=== PATIENT | female | born 1985 | race Asian ===

== ENCOUNTER 2021-12-06 10:08 | Outpatient (CLI) | payer BC, SELFPAY ==
--- NOTE | 2021-12-06 10:15 | CRLHL7_ITS ---
For Patients: As a result of the Century Cures Act, medical imaging exams and procedure reports are released immediately into your electronic medical record. You may view this report before your referring provider. If you have questions, please contact your health care provider. CLINICAL HISTORY: : Right breast MASTITIS, RULE OUT Abscess. COMPARISON: None TECHNIQUE: Real-time ultrasound imaging of right breast with imaging documentation. FINDINGS: Targeted ultrasound to the upper right breast corresponding to the area of concern performed. At 12-1 o`clock 13-15 millimeters from the nipple, multiple small circumscribed fluid collections are present with surrounding hyperechoic and hypervascular tissue. The largest measures 1.7 x 1.0 x 1.0 cm although there are multiple smaller abscesses also present. IMPRESSION: Multiple abscesses in the upper right breast measuring up to 1.7 cm. RECOMMENDATIONS: Antibiotic therapy and clinical follow-up. Results and recommendations were discussed with the patient at the time of the exam. BI-RADS: 2. Benign. Dictated by Raleigh Thurston MD @ 12/06/2021 11:02:09 AM (Electronically Signed)
== END 2021-12-06 10:09 | disposition home or self-care (01) ==
PROVIDERS: Visit Provider Physician Assistant
DX: N61.0 Mastitis without abscess (principal)
CPT/HCPCS: 76642

== ENCOUNTER 2021-12-23 09:01 | Outpatient (RCR) | payer BC, SELFPAY ==
--- NOTE | 2021-12-23 10:48 | PT.OPEX ---
PT [place] [facility] Eval PT [facility] Outpatient Eval Start: 12/23/21 09:03 Freq: Status: Active Protocol: Document 12/23/21 10:17 DARYN (Rec: 12/23/21 10:41 DARYN [id number]) E-signed By Tabitha Schroeder, PT Physical Therapy Outpatient Evaluation Insurance Information Insurance Name [employer] Medical Diagnosis pelvic floor weakness female genital prolapse Treating Diagnosis muscle weakness lack of coordination (muscle) Subjective Subjective Winters presents with diagnosis of PFM and genital prolapse following the delivery of her 2nd baby approximately 6 weeks ago. Pt reports initially having a prolapse following the vaginal delivery but those symptoms have improved. Does not feel like she has the ability to contract her PFM. She continues to have issues with XAVIER symptoms - leaking with coughing and sneezing. Other bladder function is good . Urinates approximately every 5 hours. She drinks 128 oz of water per day. Is currently breast feeding her daughter and is pumping breast milk for 2 other infants. Does feel with the frequent pumping she gets dehydrated. Able to defecate approximately every 2 days which was normal for her for years. Has attempted intercourse and had no pain. Her goals for therapy are to improve her PFM strength and improve bladder control. Pain Comments NA Precautions Treatment Precautions/Contraindications History of lumbar fusions approx 8 yrs ago - fusion of L5-S1 after 2 failed microdiscectomies. depression recent delivery - November 02, 2021 Pt will return to work on Jan 02. Assessment Assessment/Impression 35 yo client presents with main c/o XAVIER symptoms and difficulty firing her PFM. She is drinking good amounts of fluid but does pump often due to helping providing breast milk for 3 infants. Able to assess PFM function and found 3/5 Kegel strength. Only able to hold steady contraction X 3 sec, 5 reps. Also noticed during examination, pt contracted along perineal region with initial bearing down. No visible descent of vaginal tissues with bearing down. Pt 's only c/o tenderness was mild pressure along L iliococcygeus and pubococcygeus. Plan is to continue with further skilled PT services to address pt's PFM weakness, XAVIER symptoms and will continue to monitor for POP symptoms with use of ther exs, NMRE, [place], and ther act. Plan of Care Rehabilitation Potential Good Physical Therapy Goals Short term goals to be achieved in 4 weeks 1. Able to report voiding approx 6-8X per day, with intervals of 1X every 2-4 hours. 2. Pt will demonstrate use of functional PFM contraction by performing a precontraction to eliminate UI during cough and sneezing 3. Will demonstrate an increase in PFM endurance from 3 sec hold to 8 sec hold X 10 reps for ability to reduce UI symptoms. alf goals to be achieved in 12 weeks. 1. Independent with self-care program to allow for return to prior level of function without leaking 2. Will report an 80% reduction, or greater, in her UI symptoms as seen with ability to stay dry 5 out of 7 days. 3. Pt will report no leaking with coughing, sneezing, jumping, running. 4. Pt will report no symptoms of POP with daily ADLs including lifting, carrying, bending, etc. Coordination/Communication With Referral Source Treatment Plan/Direct Interventions Joint Mobilization,Manual Therapy,Neuromuscular Re-ed, Self-Care/Home Management, Therapeutic Activities, Therapeutic Exercises Frequency/Duration 1 time a week for up to 12 visits Patient Will Be Discharged From Therapy Completion of LTG(s),Skills Plateau,Independent w/HEP, Independently Progressing Evaluation Billing Untimed Code Treatment Minutes 35 Complexity Moderate
== END 2022-03-15 17:22 | disposition home or self-care (01) ==
PROVIDERS: Visit Provider Advanced Practice Midwife
DX: R10.2 Pelvic and perineal pain (principal); N81.10 Cystocele, unspecified; M62.81 Muscle weakness (generalized); R27.9 Unspecified lack of coordination; Z51.89 Encounter for other specified aftercare
CPT/HCPCS: 97110; 97162; 97535

== ENCOUNTER 2022-03-14 11:00 | Outpatient (CLI) | payer BC, SELFPAY ==
--- NOTE | 2022-03-14 11:15 | CRLHL7_ITS ---
For Patients: As a result of the Century Cures Act, medical imaging exams and procedure reports are released immediately into your electronic medical record. You may view this report before your referring provider. If you have questions, please contact your health care provider. RIGHT BREAST ULTRASOUND CLINICAL HISTORY: History of RIGHT upper inner breast mastitis with microabscesses, now with recurrent pain. The patient breast pumps for donation. TECHNIQUE: RIGHT breast ultrasound was performed. COMPARISON FILM: Breast ultrasound 12/06/2021. FINDINGS: Targeted RIGHT breast ultrasound at the site of tenderness in the RIGHT breast at the 1 o???clock position approximately 13 cm from the nipple. Mild increased echogenicity in the site of breast tenderness, likely inflamed breast tissue. No abscess, fluid collection or other abnormality. IMPRESSION: No abscess of fluid collection. ASSESSMENT: ACR not applicable. A lay language report of this examination will be provided to the patient. Demetrius Faust M.D. Diagnostic/Musculoskeletal Radiologist [email or web address] NAHUN/lucy PT/Dictated by: Demetrius Faust MD @ 03/14/2022 11:53:00 AM (Electronically Signed)
--- OUTSIDE RECORDS SUMMARY | 2022-03-14 11:17 | XMS_ITS | Clinical Summary ---
:1985 Author Organization [facility] [place] [address] Care Team Providers Name Role Phone Joanna Wright MD Primary Care Provider [phone] Allergies Active Allergy Reactions Severity Noted Date Comments Minocycline Hives 08/26/2008 Morphine Itching High 05/07/2019 Patient epidura l for back surgery, they had to remove i t because of the itching. Medications Medication Sig Dispensed Refills Start Date End Date Status Cholecalciferol, Vitamin Take 1 tablet by 0 06/21/19 18 Active D3, (VITAMIN D-3) 5,000 mouth once unit tab daily. Pt states taking Vit D gummies 5000 iu per day [id number] Chew by mouth. 0 03/24/2021 Active h oil ( Gummy) 400 mcg-35 mg -25 mg-5 mg chew ondansetron (Zofran ODT) Place 1 Tablet 30 Tablet 0 03/24/2021 Active 4 mg disintegrating (4 mg) on the tabletIndications: tongue 2 times Nausea and vomiting daily. during Active Problems Problem Noted Date Nausea and vomiting during 03/24/2021 Overweight (BMI 25.0-29.9) 02/09/2020 History of section 11/30/2019 Overview: Breech Noted in labor at 3cm BIJAN (generalized anxiety disorder) 09/27/2011 Major depression, recurrent 09/16/2009 Overview: Stable on Prozac/ wellbutrin. Under care of psych Estimated Date of Delivery Comments Yes 11/13/2021 Resolved Problems Problem Noted Date Resolved Date Lactating mother 02/09/2020 03/24/2021 Full-term premature rupture of membranes with onset of labor 11/30/2019 2019 within 24 hours of rupture Urinary tract infection in mother during third trimester of 10/06/2019 2019 Encounter for supervision of normal first in third 05/07/2019 2019 trimester Overview: First . Patient is feeling naus eated all day, vomiting every morning. She is also fighting a virus and was seen yesterday, influenza tested negative. Patient is able to keep fluids down. Hx of depression/anxiety, currently taking Pro kamran. Hx of back surgery. Prepregnancy BMI: 27 Early GCT: indicated , Patient's father had diabetes ASA: not indicated Dated by: LMP, no dating US Would accept blood products: yes Pertinent medical information: Hx vitami n D deficiency, Hx depression Previous deliveries reviewed by MD: screening: patient and SO are discussing options and will message or call the clinic to let CNM know what they decide. Screening US: Rh pending Abdominal pain, unspecified site 09/27/2011 020 BRBPR (bright red blood per rectum) 09/27/201105/21 Tobacco use disorder 07/04/2011 05/07/2019 Surveillance of previously prescribed intrauterine 9 05/07/2019 contraceptive device Immunizations Name Administration Dates Next Due AMB Influenza, IIV4 PF (=>6 mos 03/04/2017 Flulaval,Fluzone Fluarix)(Flu Clinic Only) DTaP 12/07/1995, 12/11/1986, 09/11/1986, 08/06/1985, 06/03/1985, 01/03/1985 Hepatitis A, Unspecified 09/15/1999 Influenza Virus, Unspecified 04/19/1998 Influenza, IIV4 02/09/2020, 05/23/2018 MMR 09/02/1996, 11/30/1987, 06/16/1986 Polio Virus, Unspecified 12/11/1986, 09/11/1986, 06/03/1985, 01/03/1985 Rabies Vaccine 10/06/1999, 09/23/1999, 09/15/1999 Td (Age >=7 Years) 05/23/2018 Tdap 09/26/2019, 07/19/2005 Typhoid (injectable) 09/15/1999 Family History Medical History Relation Name Comments Good Health Brother 1 older Good Health Brother 2 older Diabetes Father Hyperlipidemia Father Hypertension Father Psychiatric illness Mother defects No Family History Clotting disorder No Family History Relation Name Status Comments Brother 1 older Alive Brother 2 older Alive Father Maternal Grandfather Maternal Grandmother Mother Alive Paternal Grandfather Paternal Grandmother Social History Tobacco Use Types Packs/Day Years Used Date Former Smoker Cigarettes 0 Quit: 04/05/20 19 Smokeless Tobacco: Never Used Tobacco Cessation: Ready to Quit: No Alcohol Use Standard Drinks/Week Comments No 0 (1 standard drink = 0.6 oz pure alcoho l) Estimated Date of Delivery Comments Yes 11/13/2021 Sex Assigned at Date Recorded Female 03/23/2021 10:01 AM CDT Obstetrics History Para Term AB IAB SAB Ectopic Multiple Living Live Births 2 1 1 0 0 0 0 0 0 0 Date Outcome GA Total Labor/2nd/3rd Weight Sex Delivery Anes PTL Narda A 1 A5 Name Clin Labor 11/29 Term 38w 0h 01m 2.83 kg M CS-LTranv Epidu 7 8 KOURTNEY Rosenberg /2019 0d (6 lb ral N,BB Fis ch 3.8 oz) MCCARTNEY er Complications: Breech Delivery Location: [facility]) Current Last Filed Vital Signs Vital Sign Reading Time Taken Comments Blood Pressure 110/74 03/24/2021 1:34 PM CDT Pulse 84 03/24/2021 1:34 PM CDT Temperature 36.8 ??C (98.2 ??F) 12/02/2019 8:00 AM CDT Respiratory Rate 16 12/02/2019 8:00 AM CDT Oxygen Saturation 97% 12/01/2019 8:15 PM CDT Inhaled Oxygen Concentration - - Weight 66.2 kg (146 lb) 03/24/2021 1:34 PM CDT Height 160 cm (5' 3) 03/24/2021 1:34 PM CDT Body Mass Index 25.86 03/24/2021 1:34 PM CDT Plan of Treatment Health Maintenance Due Date Last Done Comments COVID-19 vaccine series (3 - 11/25/2020 09/30/2020, 021 Booster for Moderna series) Influenza for age 9-49 01/19/2022 02/09/2020, 05/23/2018, 03/04/2017, Additional history exists BMI (ht and wt on same day) for 03/24/2022 03/24/2021, 03/22, age 18+ 02/09/2020, Additional history exists Depression screening for age 12+ 03/24/2022 03/24/2021, , 09/26/2019, Additional history exists Pap test for age 21-65 04/09/2025 04/09/2020, 02/09/2020, 12/20/2015 (Completed outside of [facility]), Additional history exists Tetanus booster 09/25/2029 09/26/2019, 05/23/2018, 07/19/2005 Hepatitis C screening for age Completed 05/07/2019, 2017 18-79 Tdap Completed 09/26/2019, 07/19/2005 Results Not on filefrom Last 3 Months Insurance Payer Benefit Plan / Subscriber ID Effective Dates Phone Addre ss Type Group BLUE CROSS BL[employer] OF [id number] 2019-Present [address] [address] [place] [address] [place] Personal/Famil Self 1985 [id number] [place] [id number] Advance Directives Latest Code Status on File Code Status Date Activated Date Inactivated Comments Full Code 11/30/2019 12:23 PM 12/02/2019 1:54 PM Care Teams Advanced Se[employer] Delivery System Relationship Specialty Start Date End Date Joanna Wright MD PCP - General Family Practice 06/21/[address] [place] [id number]
== END 2022-03-14 11:01 | disposition home or self-care (01) ==
LOC: US 11:00
PROVIDERS: Visit Provider Obstetrics & Gynecology
DX: N61.1 Abscess of the breast and nipple (principal)
CPT/HCPCS: 76642

== ENCOUNTER 2023-01-10 09:18 | Outpatient (CLI) | payer BC, SELFPAY | END 2023-01-10 09:19 | disposition home or self-care (01) | PROVIDERS: Visit Provider Internal Medicine | DX: R53.83 Other fatigue (principal) | CPT/HCPCS: 80053; 82306; 84443 ==

== ENCOUNTER 2023-03-12 19:23 | Outpatient (CLI) | payer BC, SELFPAY ==
--- NOTE | 2023-03-14 13:00 | W.PM.SLEEP ---
Sleep Study Details Details Interpreting Provider: Carlos Date of Sleep Study: 03/12/23 Sleep Study Details: STUDY TYPE:? Home unattended ? BMI:? 31.5 ORDERING PROVIDER:? Antonio INDICATION:? Concerns about sleep apnea ? SLEEP SUMMARY:? 305.2 minutes monitored RESPIRATORY SUMMARY:? AHI 5.9 Low oxygen 84 0.3% of study oxygen less than 90% Snoring 0.7% PERIODIC LIMB MOVEMENTS OF SLEEP:? Not recorded during home study CARDIAC:? 73-104 beats per minute, mean 83.2 beats per minute IMPRESSION:? Mild obstructive sleep apnea RECOMMENDATION: Treatment options include CPAP, dental appliance and/or airway expansion surgery.
== END 2023-03-12 19:24 | disposition home or self-care (01) ==
LOC: SLEEP 19:24
PROVIDERS: PCP Internal Medicine; Visit Provider Internal Medicine
DX: G47.33 Obstructive sleep apnea (adult) (pediatric) (principal)
CPT/HCPCS: 95806

== ENCOUNTER 2023-08-30 08:54 | Outpatient (CLI) | payer BC, SELFPAY ==
--- OUTSIDE RECORDS SUMMARY | 2023-08-30 08:56 | XMS_ITS | Clinical Summary ---
Author Name Unknown Organization [facility] Address [place], [place] [address] Care Team Providers Care Associate Vice President Name Role Phone Joanna Wright MD Primary Care Provider + Allergies Active Allergy Reactions Criticality Noted Date Comments Minocycline Hives 08/26/2008 Morphine Itching High 05/07/2019 Patient epidural for back surgery, they had to remove it because of the itching. Medications Medication Sig Dispensed Refills Start Date End Date Status Cholecalciferol, Vitamin D3, (VITAMIN D-3) 5,000 unit tab Take 1 tablet by mouth once daily. Pt states taking Vit D gummies 5000 iu per day 0 06/21/2017 Active [id number] sh oil ( Gummy) 400 mcg-35 mg -25 mg-5 mg chew Chew by mouth. 0 03/24/2021 Active ondansetron (Zofran ODT) 4 mg disintegrating tabletIndications:Nause a and vomiting during Place 1 Tablet (4 mg) on the tongue 2 times daily. 30 Tablet 03/24/2021 Active Active Problems Problem Noted Date Diagnosed Date Nausea and vomiting during 03/24/2021 Overweight (BMI 25.0-29.9) 02/09/2020 History of section 11/30/2019 Overview: Breech Noted in labor at 3cm BIJAN (generalized anxiety disorder) 09/27/2011 Major depression, recurrent 09/16/2009 Overview: Stable on Prozac/ wellbutrin. Under care of psych Estimated Date of Delivery Comme nts Yes 11/13/2021 Resolved Problems Problem Noted Date Diagnosed Date Resolved Date Lactating mother 02/09/2020 03/24/2021 Full-term premature rupture of membranes with onset of labor within 24 hours of rupture 11/30/2019 2019 Urinary tract infection in m other during third trimester of 10/06/2019 2019 Encounter for supervision of normal first in third trimester 05/07/2019 2019 Overview: First . Patient is feeling nauseated all day, vomiting every morning. She is also fighting a virus and was seen yesterday, influenza tested negative. Patient is able to keep fluids down. Hx of depression/anxiety, currently taking Prozac. Hx of back surgery. Prepregnancy BMI: 27 Early GCT: indicated , Patient's father had diabetes ASA: not indicated Dated by: LMP, no dating US Would accept blood products: yes Pertinent medical information: Hx vitamin D deficiency, Hx depression Previous deliveries reviewed by MD: screening: patient and SO are discussing options and will message or call the clinic to let CNM know what they decide. Screening US: Rh pending Abdominal pain, unspecified site 09/27/2011 09/26/2019 BRBPR (bright red blood per rectum) 09/27/2011 06/04/2019 Tobacco use disorder 07/04/2011 019 Surveillance of previously p rescribed intrauterine contraceptive device 08/26/20082018 Immunizations Name Administration Dates Next Due AMB Influenza, IIV4 PF (=>6 mos Flulaval,Fluzone Fluarix)(Flu Clinic Only) 03/04/2017 DTaP 12/07/1995, 7,09/11/1986,1985,06/03/1985,01/03/1985 Hepatitis A, Unspecified 09/15/1999 Influenza Virus, Unspecified 04/19/1998 Influenza, IIV4 02/09/2020,05/23/2018 MMR 09/02/1996,11/30/1987,06/16/1986 Polio Virus, Unspecified 12/11/1986,08/20,06/03/1985,1984 Rabies Vaccine 10/06/1999,09/23/1999,09/15/1999 Td (Age >=7 Years) 05/23/2018 Tdap 09/26/2019,07/19/2005 Typhoid (injectable) 09/15/1999 Family History Medical History [...] Tobacco Use Types Packs/Day Years Used Date Smoking Tobacco: Former Cigarettes Q uit: 04/05/2019 Smokeless Tobacco: Never Tobacco Cessation:Ready to Q uit: No Alcohol Use Standard Drinks/Week Comments No 0 (1 standard drink = 0.6 oz pur e alcohol) PHQ-2 Answer Date Recorded PHQ-2 TOTAL SCORE 0 03/24/2021 Social Connections Answer Date Recorded Frequency of Communication with Friends and Fami ly Not on file 05/21/2021 Financial Resource Strain Answer Date R ecorded Difficulty of Paying Living Expenses Not on file 05/21/2021 Difficulty of Paying Living Expenses Not on file 05/21/2021 Estimated Date of Delivery Comme nts Yes 11/13/2021 Sex and Gender Information Value Date Recorded Sex Assigned at Female 03/23/2021 10:01 AM CDT Gender Identity Not on file Sexual Orientation Straight 03/23/2021 10 :01 AM CDT Obstetrics History Para Term AB IAB SAB Ectopic Multiple Livin g Live Births 2 1 1 0 0 0 0 0 0 0 Date Outcome GA Total Labor Labor/2nd/3rd Weight Sex Delivery Anes PTL Narda A1 A5 Name Cl in 11/29 Term 38w 0d 0h 01m 2.83 kg (6 lb 3.8 oz) M CS-LTranv Epidu ral 7 8 KOURTNEY Putnam,BB SINGH Webb er Complications:Breech Delivery Location:[facility]) Current Last Filed Vital Signs Vital Sign Reading Time Taken Comments Blood Pressure 110/74 03/24/2021 1:34 PM CDT Pulse 84 03/24/2021 1:34 PM CDT Temperature 36.8 ??C (98.2 ??F) 12/02/2019 8:00 AM CD T Respiratory Rate 16 12/02/2019 8:00 AM CDT Oxygen Saturation 97% 12/01/2019 8:15 PM CDT Inhaled Oxygen Concentration - - Weight 66.2 kg (146 lb) 03/24/2021 1:34 PM CDT Height 160 cm (5' 3) 03/24/2021 1:34 PM CDT Body Mass Index 25.86 03/24/2021 1:34 PM CDT Plan of Treatment Health Maintenance Due Date Last Done Comments BMI (ht and wt on same day) for age 18+ 03/24/2022 03/24/2021, 04/09/2020, 02/09/2020, Additional history exists Depression screening for age 12+ 03/24/2022 03/24/2021, 02/09/2020, 09/26/2019, Additional history exists COVID-19 vaccine series ( season) 2023 09/30/2020, 08/26/2020 Influenza for age 9-49 01/20/2024 0, 05/23/2018, 03/04/2017, Additional history exists Pap test for age 21-65 04/09/2025 0, 02/09/2020, 12/20/2015 (Completed outside of [facility]), Additional history exists Tetanus booster 09/25/2029 09/26/2019, 07/2018, 07/19/2005 HIV for age 15-65 Completed 05/07/2019, 06/21/2017 Hepatitis C screening for age 18-79 Completed 05/07/2019, 06/21/2017 Tdap Completed 09/26/2019, 07/19/2005 Pneumococcal series for age 6-64 Aged Out No longer eligible based on patient's age to complete this topic Procedures Procedure Name Priority Date/Time Associated Diagnosis Comments PAYMENT PROCESSOR THIN PREP PAP SCREEN IMAGED Routine 04/09/2020 1:54 PM ASSOCIATE GENETICS PROFESSOR Cervical cancer screening ANTI HIV 1/2 Routine 05/07/2019 4:20 PM ASSOCIATE GENETICS PROFESSOR care, first in first trimester ANTI HCV Routine 05/07/2019 4:20 PM ASSOCIATE GENETICS PROFESSOR care, first in first trimester from Last 3 Months or Most Recently Relevant to Health Maintenance Results * PAYMENT PROCESSOR THIN PREP PAP SCREEN IMAGED (04/09/2020 1:54 PM ASSOCIATE GENETICS PROFESSOR) Case Report Gynecologic Cytology Report ? Case: [id number] ? Authorizing Provider: ??Jose Musa CNM ?Collected: ? 04/09/2020 1354 ? [facility] ? Received: ?04/09/2020 1354 ? Clinic ? First Screen: ?Mooney, Jordyn ? Rescreen: ?Varsha Madison ? Specimen: ?PAYMENT PROCESSOR ThinPrep Vial Screening, Cervical ? 04/21/2020 1:31 PM ASSOCIATE GENETICS PROFESSOR [facility] INTERPRETATION/ RESULT NEGATIVE FOR INTRAEPITHELIAL LESION OR MALIGNANCY (NIL) (none) 04/21/2020 1:31 PM ASSOCIATE GENETICS PROFESSOR [facility] IMEN ADEQUACY Satisfactory for evaluation Endocervical component present 04/21/2020 1:31 PM ASSOCIATE GENETICS PROFESSOR [facility] HPV REQUEST HPV if ASCUS 04/21/2020 1:31 PM ASSOCIATE GENETICS PROFESSOR [facility] Date of LMP 03/09/19 04/21/2020 1:31 PM ASSOCIATE GENETICS PROFESSOR [facility] Last Pap Date 02/10/20 04/21/2020 1:31 PM ASSOCIATE GENETICS PROFESSOR [facility] Last Pap Result UNS 0 1:31 PM ASSOCIATE GENETICS PROFESSOR [facility] Abnormal Pap or Peytona Bx in last 5 years No 04/21/2020 1:31 PM ASSOCIATE GENETICS PROFESSOR [facility] Menstrual Status 04/21/2020 1:31 PM ASSOCIATE GENETICS PROFESSOR [facility] Peytona Bx Done Today No 04/21/2020 1:31 PM ASSOCIATE GENETICS PROFESSOR [facility] Additional Information inadequate cells on last pap 04/21/2020 1:31 PM ASSOCIATE GENETICS PROFESSOR [facility] Comment: Cytology is screened at [facility] - [address], [place] [address] and [facility] - [address] [place] [address] and [facility] - [address] [place] [address] Interpreted at [facility] - [address], [place] [address] Automated Review Successful 04/21/2020 1:31 PM ASSOCIATE GENETICS PROFESSOR [facility] Comment:Specimen processed s uccessfully by automated armature winder repair helper device, ThinPrep Imaging System, [employer] Note The pap test is a screening technique, not a diagnostic procedure. It is used primarily to screen for squamous cancers and precursor lesions. Published studies have shown that it is subject to both false negative and false positive results. The pap test should not be used as the sole means to diagnose or exclude pre-malignant and malignant lesions. 04/21/2020 1:31 PM ASSOCIATE GENETICS PROFESSOR [facility] Other (Cervical) Non-Blood / Unknown 04/09/2020 1:54 PM ASSOCIATE GENETICS PROFESSOR 04/09/2020 1:54 PM ASSOCIATE GENETICS PROFESSOR Jose Musa CNM PATHOLOGY/CYTOLOGY Performing Organization Address [facility] Co de Phone Number [facility] [address] [place] [address], * ANTI HCV (05/07/2019 4:20 PM ASSOCIATE GENETICS PROFESSOR) HEPATITIS C ANTIBODY Non-React kevin Non-React kevin 05/07/2019 9:32 PM ASSOCIATE GENETICS PROFESSOR [facility] Comment:Antibodies to HCV no t detected; does not exclude the possibility of exposure to HCV. Blood BLOOD SPECIMEN / Unknown Venipuncture / Unknown 05/07/2019 4:20 PM ASSOCIATE GENETICS PROFESSOR 05/07/2019 4:20 PM ASSOCIATE GENETICS PROFESSOR Edgard RALPHM SEND OUTS Performing Organization Address [facility] Co de Phone Number [facility] [address] [place] [address], [place] * ANTI HIV 1/2 (05/07/2019 4:20 PM ASSOCIATE GENETICS PROFESSOR) HIV-1/HIV-2 ANTIBODY Non-Reacti ve Non-Reacti ve 05/07/2019 9:36 PM ASSOCIATE GENETICS PROFESSOR [facility] Comment:HIV-1 p24 and HIV-1/ HIV-2 Ab not detected. Blood BLOOD SPECIMEN / Unknown Venipuncture / Unknown 05/07/2019 4:20 PM ASSOCIATE GENETICS PROFESSOR 05/07/2019 4:20 PM ASSOCIATE GENETICS PROFESSOR Edgard Gama CNM SEND OUTS Performing Organization Address City/[facility] Co de Phone Number [facility] [address] [place] [address], [place] from Last 3 Months or Most Recently Relevant to Health Maintenance Advance Directives * Full Code (Latest Code Status on File) Date Activated Date Inactivated Comments 11/30/2019 12:23 PM 12/02/2019 1:54 PM Care Teams Associate Vice President Relationship Specialty Start Date End Date Joanna Wright MD [address] [place] [address] PCP - General Family Practice 06/21/17
[2023-08-30 11:49] LABS: Chlamydia DNA Amplified* NOT DETECTED (No Detected); GC DNA Amplified* NOT DETECTED (No Detected)
== END 2023-08-30 08:55 | disposition home or self-care (01) ==
LOC: NFLDREF 08:54
PROVIDERS: PCP Internal Medicine; Visit Provider Obstetrics & Gynecology
DX: N89.8 Other specified noninflammatory disorders of vagina (principal)
CPT/HCPCS: 87491; 87591

== ENCOUNTER 2023-10-22 15:33 | Outpatient (CLI) | payer BC, SELFPAY | END 2023-10-22 15:34 | disposition home or self-care (01) | PROVIDERS: PCP Internal Medicine; Visit Provider Internal Medicine | DX: I10 Essential (primary) hypertension (principal); Z32.02 Encounter for pregnancy test, result negative; Z13.0 Encounter for screening for diseases of the blood and blood-forming organs and certain disorders involving the immune mechanism | CPT/HCPCS: 80053; 84702; 85610; 85730 ==

== ENCOUNTER 2024-09-23 18:56 | Outpatient (CLI) | payer BC, SELFPAY ==
--- NOTE | 2024-09-23 19:20 | CRLHL7_ITS ---
For Patients: As a result of the Century Cures Act, medical imaging exams and procedure reports are released immediately into your electronic medical record. You may view this report before your referring provider. If you have questions, please contact your health care provider. INDICATION: BILATERAL SCREENING MAMMOGRAM, ASYMPTOMATIC 39 F COMPARISON: Baseline TECHNIQUE: CC and MLO views were obtained. These mammographic images have been obtained using full-field digital technique. These mammographic images were interpreted with the benefit of computer aided detection and tomosynthesis. BREAST COMPOSITION: There are scattered areas of fibroglandular density. FINDINGS: No suspicious findings. ASSESSMENT: BI-RADS 1 Negative RECOMMENDATION: Annual screening mammogram. A lay language report of this examination will be provided to the patient. Dictated by: Raleigh Thurston MD @ 09/26/2024 10:18:09 (Electronically Signed)
== END 2024-09-23 18:57 | disposition home or self-care (01) ==
LOC: MAMMO 18:57
PROVIDERS: PCP Internal Medicine; Visit Provider Plastic Surgery
DX: Z12.31 Encounter for screening mammogram for malignant neoplasm of breast (principal)
CPT/HCPCS: 77063; 77067

== ENCOUNTER 2025-02-23 08:06 | Outpatient (CLI) | payer BC, SELFPAY ==
--- NOTE | 2025-02-23 09:58 | P.ANES_ITS ---
Anesthesia Charges Start Date/Time Anesthesia Start Date: 02/23/25 Anesthesia Start Time: 09:23 Stop Date/Time Anesthesia Stop Date: 02/23/25 Anesthesia Stop Time: 09:54 Coding CPT Codes CPT Codes: JUSTO LWR INTST SCR COLSC - 43086 ([id number]) P2 - PATIENT W/MILD SYST DISEASE, QX - BOILER CONTROL TECHNICIAN SVC W/ MD MED DIRECTION, QK - MANAGER PROGRAMMING 2-4 CNCRNT ANES PROC
--- NOTE | 2025-02-23 09:58 | W.ANESCHARGE ---
Anesthesia Charges Start Date/Time Anesthesia Start Date: 02/23/25 Anesthesia Start Time: 09:23 Stop Date/Time Anesthesia Stop Date: 02/23/25 Anesthesia Stop Time: 09:54 Coding CPT Codes CPT Codes: JUSTO LWR INTST SCR COLSC - 99007 ([id number]) P2 - PATIENT W/MILD SYST DISEASE, QX - RADIOTELEGRAPHIST SVC W/ MD MED DIRECTION, QK - OUTREACH WORKER 2-4 CNCRNT ANES PROC
--- NOTE | 2025-02-23 10:24 | P.ANES_ITS ---
Anesthesia Charges Start Date/Time Anesthesia Start Date: 02/23/25 Anesthesia Start Time: 09:23 Stop Date/Time Anesthesia Stop Date: 02/23/25 Anesthesia Stop Time: 09:54 Coding CPT Codes CPT Codes: JUSTO LWR INTST SCR COLSC - 34333 ([id number]) P2 - PATIENT W/MILD SYST DISEASE, QK - CORRECTIONAL GUARD 2-4 CNCRNT ANES PROC, QX - SALES ASSISTANTS AND SALESPERSONS SVC W/ MD MED DIRECTION
--- NOTE | 2025-02-23 10:24 | W.ANESCHARGE ---
Anesthesia Charges Start Date/Time Anesthesia Start Date: 02/23/25 Anesthesia Start Time: 09:23 Stop Date/Time Anesthesia Stop Date: 02/23/25 Anesthesia Stop Time: 09:54 Coding CPT Codes CPT Codes: JUSTO LWR INTST SCR COLSC - 33208 ([id number]) P2 - PATIENT W/MILD SYST DISEASE, QK - FIRE FIGHTER CRASH FIRE AND RESCUE 2-4 CNCRNT ANES PROC, QX - STAGE ELECTRICIAN HELPER SVC W/ MD MED DIRECTION
== END 2025-02-23 08:07 | disposition home or self-care (01) ==
LOC: OP CLINIC 08:06
PROVIDERS: PCP Internal Medicine; Visit Provider Surgery
DX: Z12.11 Encounter for screening for malignant neoplasm of colon (principal); Z80.0 Family history of malignant neoplasm of digestive organs
CPT/HCPCS: 00812; 45378; J2704